=== PATIENT | female | born 1980 ===

== ENCOUNTER 2018-03-25 06:13 | Inpatient (IN) | payer BC ==
[2016-03-29 09:01] VITALS: BMI 22.3
[2018-03-25] MEDS ORDERED: Clindamycin 600mg/50ml NS 600 MG/50 ML BAG IVPB ONE ×2 (07:27→10:00)
[2018-03-25] MEDS ORDERED: Gentamicin 80 mg in 0.9% NS 80 MG/100 ML BAG IVPB ONE (07:27)
[2018-03-25] MEDS ORDERED: Propofol 10 mg/ml Inj (20 ML) ONE (07:35)
[2018-03-25] MEDS ORDERED: Midazolam 2 MG/2 ML VIAL ONE (07:36)
[2018-03-25] MEDS ORDERED: Morphine 4 MG/ML VIAL ONE (08:26)
[2018-03-25] MEDS ORDERED: Rocuronium 10 mg/ml (5 ml) ONE (08:38)
[2018-03-25] MEDS ORDERED: Neostigmine Methylsulfate 3mg/3ml Syringe IV ONE (08:38)
[2018-03-25] MEDS: HYDROmorphone 0.5 mg/0.5 ml ISec IVP PRN ×4 (09:22→10:44)
[2018-03-25] MEDS ORDERED: Clindamycin 600mg/50ml D5W 600 MG/50 ML VIAL IVPB ONE (10:00)
[2018-03-25] MEDS: Dextrose 5%/0.45% NS 1,000 ML IV SCH ×2 (12:36→17:06)
--- NOTE | 2018-03-25 20:46 | OP ---
PROCEDURE DATE: 03/25/2018 PREOPERATIVE DIAGNOSES: Fibroid uterus, menorrhagia. POSTOPERATIVE DIAGNOSES: Fibroid uterus, menorrhagia. PROCEDURES: Subtotal abdominal hysterectomy, bilateral salpingectomy. FINDINGS: An 18-week size fibroid uterus with the lower cervix firmly adherent to the bladder at the site of the previous section. Normal tubes and ovaries. SURGEON: Ingrid Sanz MD ELEVATOR CONSTRUCTOR SUPERVISOR: Niko Wilson MD ESTIMATED BLOOD LOSS: 250 mL. COMPLICATIONS: Nil. DESCRIPTION OF PROCEDURE: After the risks, benefits and alternatives of the planned procedures including but not limited to infection, hemorrhage, deep vein thrombosis, atelectasis, pneumonia, pulmonary embolism, damage to the bladder, damage to the ureter, renal insufficiency, renal failure, wound infection, wound dehiscence, incisional hernia, keloid formation, damage to the large and small intestines, damage to the inferior vena cava and aorta requiring extensive repair, anesthesia complications, electrolyte imbalance, possibility of , fluid overload, cerebral edema, air embolism and other complications that were discussed, but are not listed above had been explained to the patient and all her questions were answered, informed consent was obtained. The patient was taken to the operating room in a stable condition. Under a suitable level of general anesthesia, she was prepped and draped in a sterile fashion after having been placed in a supine position. The abdomen was entered through a Pfannenstiel type incision, carried through the subcutaneous tissues through the fascia. Fascia was opened transversely and dissected off the rectus abdominis musculature. Rectus abdominis musculature was then in the midline to remove the parietal peritoneum, which was entered sharply and incised superiorly and inferiorly. Adhesions involving the omentum and posterior wall of the uterus were then lysed using sharp dissection. The right and left round ligaments were then clamped, cut, and ligated using #0 Vicryl suture. The anterior lip of the broad ligament was opened on the right and left side joining the midline over the bladder reflection. The bladder was then dissected of the lower uterine segment and upper half of the cervix. A hole was made in the broad ligament on the right and left side. Entire portion of the broad ligament, cornua, and utero-ovarian ligaments were doubly clamped, cut, and doubly ligated using #0 Vicryl suture. The right and left cardinal ligaments were then clamped, cut, and ligated using #0 Vicryl suture. The right and left upper portions of the cardinal ligaments were then clamped, cut, and ligated using #0 Vicryl suture. The cervix was then transected half way up the endocervical canal. The outer portion of the cervix and uterus were then submitted for pathology. The right and left mesosalpinx was resected using LigaSure to remove the tubes. Both ovaries were normal. The cervical stump was then closed using interrupted sutures of 0 Vicryl. The pelvic peritoneum was reapproximated over the cervical stump using a running suture of 3-0 chromic. Peritoneal cavity was then irrigated using copious amounts of saline. The saline was evacuated. The abdomen was then closed in layers with 0 chromic to the parietal peritoneum. Rectal muscles were reapproximated using interrupted sutures of 0 chromic. Fascia was reapproximated using two separate running sutures of 0 Vicryl to meet in the midline. Subcutaneous tissues were reapproximated using interrupted sutures of 0 plain. The initial skin incision was reapproximated using 4-0 Vicryl in a subcuticular fashion. Estimated blood loss of the procedure was 250 mL. Pad, needle, and instrument counts were correct x2. There were no complications. Ingrid Sanz MD
[2018-03-26] MEDS: Dextrose 5%/0.45% NS 1,000 ML IV SCH (03:49)
[2018-03-26] MEDS ORDERED: Oxycodone/Acetaminophen 5/325 mg Tab PO PRN (08:00)
[2018-03-26] MEDS: Enoxaparin 40 mg Syringe SC SCH ×2 (10:12→10:14)
[2018-03-26 11:53] LABS: BASO % 0.4 % (0.0-2.0); LYMPH # 1.9 K/uL (1.0-4.3); MEAN CORPUSCULAR HEMOGLOBIN 21.8 pg (27.0-31.0)
[2018-03-26 11:59] LABS: ALB/GLOB RATIO 1.5 (1.0-2.1); ALBUMIN 3.7 g/dL (3.5-5.0); ALT/SGPT 26 U/L (9-52); AST/SGOT 33 U/L (14-36); BLOOD UREA NITROGEN 5 mg/dL (7-17); CALCIUM 8.7 mg/dl (8.6-10.4); GFR NON-AFRICAN AMERICAN > 60
[2018-03-26 12:00] LABS: EOS % 0.3 % (0.0-4.0); HEMOGLOBIN 10.7 g/dL (11.0-16.0); MEAN CORPUSCULAR HGB CONC 31.4 g/dL (33.0-37.0); MEAN PLATELET VOLUME 9.4 fL (7.2-11.7); MONO # 0.6 K/uL (0.0-0.8); MONO % 6.4 % (0.0-10.0); NEUT # 6.9 K/uL (1.8-7.0); NEUT % 72.9 % (50.0-75.0); NRBC % 0.1 % (0.0-2.0); RBC 4.94 Mil/uL (3.80-5.20); RED CELL DISTRIBUTION WIDTH 32.5 % (11.5-14.5); WHITE BLOOD COUNT 9.4 K/uL (4.8-10.8)
[2018-03-26] MEDS ORDERED: Simethicone 80 mg Chewtab PO PRN (12:00)
[2018-03-26 12:04] LABS: MEAN CELL VOLUME 69.4 fL (81.0-99.0)
[2018-03-26] MEDS ORDERED: Influenza Vaccine 60 MCG/0.5 ML SYR (3 yr & up) IM ONE (12:43)
[2018-03-26] MEDS ORDERED: Pneumococcal 23-Valent Vaccine IM ONE (12:44)
[2018-03-26 17:01] VITALS: RESP 20
--- NOTE | 2018-03-26 18:23 | PN ---
DATE: 03/26/2018 SUBJECTIVE: The patient has mild incisional pain, passing flatus. PHYSICAL EXAMINATION VITAL SIGNS: Afebrile. CHEST: Clear. CARDIAC: Reveals normal heart sounds without any murmurs. ABDOMEN: Bowel sounds are normal. Incision is clean and intact. EXTREMITIES: Nontender with no evidence of deep vein thrombosis. ASSESSMENT: The patient is status post subtotal abdominal hysterectomy day #1. PLAN: Ambulate the patient and advance diet as tolerated. Ingrid Sanz MD
[2018-03-27 08:03] VITALS: BP 103/67; PULSE 85; TEMP 98.6; O2SAT 99
[2018-03-27] MEDS: Enoxaparin 40 mg Syringe SC SCH (09:47)
--- NOTE | 2018-03-27 19:52 | PN ---
DATE: 03/27/2018 SUBJECTIVE: The patient has no complaints. She had bowel movement, passing flatus. OBJECTIVE: VITAL SIGNS: Stable. She is afebrile. CHEST: Clear. CARDIAC: Reveals normal heart sounds without any murmurs. LUNGS: Clear. BREASTS: Reveal no masses. ABDOMEN: Soft. Incision is clean and intact. EXTREMITIES: Nontender with no evidence of DVT. ASSESSMENT: The patient is status post total vaginal hysterectomy. Stable. PLAN: Discharge the patient on Cleocin 300 mg 4 times a day x7 days and Tylenol No. 3 one tablet every 4 hourly p.r.n. for a total of 20 tablets. To be followed up in the office in one week. Ingrid Sanz MD
--- NOTE | 2018-03-28 05:46 | DS ---
The patient is a 37-year-old female who was admitted with a history of fibroid uterus and menorrhagia. She underwent subtotal abdominal hysterectomy with bilateral salpingectomy and cystoscopy. Postoperatively, she remained afebrile and was discharged home postoperative day #2 on Cleocin 300 mg four times a day x7 days and Tylenol No. 3 two tablets every 4 hourly p.r.n. for a total of 40 tablets. To be followed up in the office in one week. Ingrid Sanz MD
== END 2018-03-27 12:00 | disposition home or self-care (01) | DRG 743 ==
LOC: C.9S 06:13 → C.5S 12:09
PROVIDERS: ADMIT Obstetrics & Gynecology Reproductive Endocrinology; ATTEND Obstetrics & Gynecology Reproductive Endocrinology
PROC: 0UT70ZZ Resection of Bilateral Fallopian Tubes, Open Approach (ICD-10-PCS; 2018-03-25)
PROC: 0DNW0ZZ Release Peritoneum, Open Approach (ICD-10-PCS; 2018-03-25)
PROC: 0UT90ZL Resection of Uterus, Supracervical, Open Approach (ICD-10-PCS; principal; 2018-03-25 07:30)
DX: D25.1 Intramural leiomyoma of uterus (principal); N92.0 Excessive and frequent menstruation with regular cycle; K66.0 Peritoneal adhesions (postprocedural) (postinfection)